=== PATIENT | female | born 1950 | race Two or more races ===

== ENCOUNTER 2018-02-09 08:49 | Outpatient (CLI) | payer OTHER ==
[~2018-02-09 08:49] MED LIST: COZAAR50 MG; HYZAAR 100-251 UDTAB PO; MECLIZINE HCL25 MG PO; TOPROL XL100 M1; XARELTO10 MG; [UNRECOGNIZED DRUG - OTHER]
== END 2018-02-09 08:53 | disposition home or self-care (01) ==
LOC: SONOGRAMA 08:49
DX: R10.84 Generalized abdominal pain (principal)

== ENCOUNTER 2018-04-27 07:53 | Outpatient (CLI) | payer OTHER | END 2018-04-27 08:13 | disposition home or self-care (01) | LOC: MAMO-SONO 07:53 | DX: Z12.31 Encounter for screening mammogram for malignant neoplasm of breast (principal); Z87.898 Personal history of other specified conditions; N62 Hypertrophy of breast ==

== ENCOUNTER → 2018-05-21 | Outpatient (CLI) | payer OTHER | END | disposition home or self-care (01) | LOC: NUCLEAR 09:10 | DX: M81.0 Age-related osteoporosis without current pathological fracture (principal) ==

== ENCOUNTER → 2018-07-11 | Emergency (ER) | payer OTHER ==
[~2018-07-11] VITALS: Ht 149.9 cm; Wt 89.4 kg
[~2018-07-11] MED LIST changes: +NEURONTIN300 MG PO
== END | disposition home or self-care (01) ==
LOC: ER 10:31
DX: R20.0 Anesthesia of skin (principal); R51 Headache

== ENCOUNTER → 2018-08-18 | Outpatient (CLI) | payer OTHER | END | disposition home or self-care (01) | LOC: SONOGRAMA 09:51 → MAMO-SONO 10:15 | DX: D25.2 Subserosal leiomyoma of uterus (principal); R10.2 Pelvic and perineal pain ==

== ENCOUNTER 2019-05-31 19:16 | Emergency (ER) | payer OTHER ==
[~2019-05-31] VITALS: Ht 149.9 cm; Wt 83.9 kg
[2019-05-31] MEDS ORDERED: ASPIR 8181 MG (19:42)
== END 2019-05-31 20:47 | disposition home or self-care (01) ==
LOC: ER 19:16
DX: T78.49XA Other allergy, initial encounter (principal); X58.XXXA Exposure to other specified factors, initial encounter

== ENCOUNTER 2019-07-17 07:42 | Outpatient (CLI) | payer OTHER ==
[~2019-07-17 07:42] MED LIST changes: +ASPIR 8181 MG
== END 2019-07-17 07:47 | disposition home or self-care (01) ==
LOC: MAMO-SONO 07:42
DX: Z12.31 Encounter for screening mammogram for malignant neoplasm of breast (principal); Z87.898 Personal history of other specified conditions; N63.11 Unspecified lump in the right breast, upper outer quadrant; R10.84 Generalized abdominal pain

== ENCOUNTER 2019-08-10 14:20 | Emergency (ER) | payer OTHER ==
[~2019-08-10] VITALS: Ht 149.9 cm; Wt 85.3 kg
== END 2019-08-10 20:01 | disposition home or self-care (01) ==
LOC: ER 14:20
DX: I10 Essential (primary) hypertension (principal)

== ENCOUNTER 2019-11-19 10:23 | Outpatient (CLI) | payer OTHER | END 2019-11-19 10:25 | disposition home or self-care (01) | LOC: SONOGRAMA 10:23 | DX: E04.1 Nontoxic single thyroid nodule (principal) ==

== ENCOUNTER → 2020-06-05 | Emergency (ER) | payer OTHER ==
[~2020-06-05] VITALS: Ht 149.9 cm; Wt 95.3 kg
[~2020-06-05] MED LIST changes: +LASIX40 MG; +MEDROLPACK PO; +SINGULAIR10 MG PO; +TUSNEL LIQUID178 ML PO; +XOPENEX0.63 MG/3 IH; +ZITHROMAX500 MG PO
== END | disposition home or self-care (01) ==
LOC: ER 19:47
DX: B34.9 Viral infection, unspecified (principal); Z03.818 Encounter for observation for suspected exposure to other biological agents ruled out; R06.02 Shortness of breath; R53.81 Other malaise; R53.1 Weakness

== ENCOUNTER 2020-06-10 09:05 | Emergency (ER) | payer OTHER ==
[~2020-06-10] VITALS: Ht 149.9 cm; Wt 95.3 kg
[~2020-06-10 09:05] MED LIST changes: -LASIX40 MG; -MEDROLPACK PO; -SINGULAIR10 MG PO; -TUSNEL LIQUID178 ML PO; -XOPENEX0.63 MG/3 IH; -ZITHROMAX500 MG PO
[2020-06-10] MEDS ORDERED: LASIX40 MG (09:08)
[2020-06-10] MEDS ORDERED: TUSNEL LIQUID178 ML PO (12:03)
[2020-06-10] MEDS ORDERED: ZITHROMAX500 MG PO (12:03)
[2020-06-10] MEDS ORDERED: XOPENEX0.63 MG/3 IH (12:04)
[2020-06-10] MEDS ORDERED: SINGULAIR10 MG PO (12:05)
[2020-06-10] MEDS ORDERED: MEDROLPACK PO (12:05)
== END 2020-06-10 12:28 | disposition home or self-care (01) ==
LOC: ER 09:05
DX: J45.998 Other asthma (principal); Z03.818 Encounter for observation for suspected exposure to other biological agents ruled out

== ENCOUNTER 2020-12-15 11:13 | Outpatient (CLI) | payer OTHER ==
[~2020-12-15 11:13] MED LIST changes: +LASIX40 MG; +MEDROLPACK PO; +SINGULAIR10 MG PO; +TUSNEL LIQUID178 ML PO; +XOPENEX0.63 MG/3 IH; +ZITHROMAX500 MG PO
== END 2020-12-15 14:10 | disposition home or self-care (01) ==
LOC: RAD 11:13 → TOM 11:15 → RAD 14:10
PROVIDERS: ATTEND Internal Medicine Cardiovascular Disease
DX: J44.9 Chronic obstructive pulmonary disease, unspecified (principal); R05 Cough; R06.2 Wheezing; R50.9 Fever, unspecified

== ENCOUNTER 2021-10-04 08:24 | Outpatient (CLI) | payer OTHER | END 2021-10-04 08:29 | disposition home or self-care (01) | LOC: MAMO-SONO 08:24 | PROVIDERS: ATTEND Obstetrics & Gynecology | DX: N64.59 Other signs and symptoms in breast (principal); Z12.31 Encounter for screening mammogram for malignant neoplasm of breast ==

== ENCOUNTER 2022-01-13 10:29 | Outpatient (CLI) | payer OTHER | END 2022-01-13 10:30 | disposition home or self-care (01) | LOC: NUCLEAR 10:29 | PROVIDERS: ATTEND Internal Medicine Cardiovascular Disease | DX: M81.0 Age-related osteoporosis without current pathological fracture (principal) ==

== ENCOUNTER 2022-06-10 07:58 | Outpatient (CLI) | payer OTHER | END 2022-06-10 08:04 | disposition home or self-care (01) | LOC: SONOGRAMA 07:58 | PROVIDERS: ATTEND Internal Medicine | DX: R10.13 Epigastric pain (principal); N80.9 Endometriosis, unspecified ==

== ENCOUNTER 2022-10-10 12:20 | Emergency (ER) | payer OTHER ==
[~2022-10-10] VITALS: Ht 149.9 cm; Wt 74.4 kg
== END 2022-10-10 16:30 | disposition home or self-care (01) ==
LOC: ER 12:20
DX: I80.3 Phlebitis and thrombophlebitis of lower extremities, unspecified (principal); Z91.041 Radiographic dye allergy status

== ENCOUNTER 2022-10-11 10:32 | Outpatient (CLI) | payer OTHER | END 2022-10-11 10:35 | disposition home or self-care (01) | LOC: NUCLEAR 10:32 | PROVIDERS: ATTEND General Practice | DX: I82.403 Acute embolism and thrombosis of unspecified deep veins of lower extremity, bilateral (principal); Z91.041 Radiographic dye allergy status ==

== ENCOUNTER 2022-12-27 11:07 | Outpatient (CLI) | payer OTHER | END 2022-12-27 11:15 | disposition home or self-care (01) | LOC: MAMO-SONO 11:07 | PROVIDERS: ATTEND Internal Medicine Cardiovascular Disease | DX: N63.11 Unspecified lump in the right breast, upper outer quadrant (principal) ==

== ENCOUNTER 2023-02-22 07:26 | Outpatient (CLI) | payer OTHER | END 2023-02-22 07:29 | disposition home or self-care (01) | LOC: NUCLEAR 07:26 | PROVIDERS: ATTEND Internal Medicine | DX: R10.13 Epigastric pain (principal); R11.0 Nausea; K31.84 Gastroparesis | CPT/HCPCS: 78264; A9541 ==

== ENCOUNTER → 2023-03-13 | Outpatient (CLI) | payer OTHER | END | disposition home or self-care (01) | LOC: NUCLEAR 09:00 | PROVIDERS: ATTEND Thoracic Surgery (Cardiothoracic Vascular Surgery) | DX: I80.3 Phlebitis and thrombophlebitis of lower extremities, unspecified (principal) ==

== ENCOUNTER 2023-11-02 08:45 | Outpatient (CLI) | payer OTHER | END 2023-11-02 08:48 | disposition home or self-care (01) | LOC: SONOGRAMA 08:45 | PROVIDERS: ATTEND Internal Medicine Cardiovascular Disease | DX: M12.9 Arthropathy, unspecified (principal); M46.97 Unspecified inflammatory spondylopathy, lumbosacral region; N80.9 Endometriosis, unspecified ==

== ENCOUNTER 2024-01-03 09:09 | Outpatient (CLI) | payer OTHER | END 2024-01-03 09:16 | disposition home or self-care (01) | LOC: MAMO-SONO 09:09 | PROVIDERS: ATTEND Internal Medicine Cardiovascular Disease | DX: N60.12 Diffuse cystic mastopathy of left breast (principal); N60.11 Diffuse cystic mastopathy of right breast; Z12.31 Encounter for screening mammogram for malignant neoplasm of breast ==

== ENCOUNTER 2024-08-07 08:39 | Outpatient (CLI) | payer OTHER | END 2024-08-07 08:43 | disposition home or self-care (01) | LOC: SONOGRAMA 08:39 | PROVIDERS: ATTEND Internal Medicine Cardiovascular Disease | DX: N80.9 Endometriosis, unspecified (principal) ==

== ENCOUNTER 2024-08-29 13:02 | Outpatient (CLI) | payer OTHER | END 2024-08-29 13:03 | disposition home or self-care (01) | LOC: NUCLEAR 13:02 | PROVIDERS: ATTEND Internal Medicine Cardiovascular Disease | DX: M81.0 Age-related osteoporosis without current pathological fracture (principal) ==

== ENCOUNTER 2024-09-19 19:19 | Emergency (ER) | payer OTHER ==
[~2024-09-19] VITALS: Ht 149.9 cm; Wt 86.2 kg
[2024-09-19] MEDS ORDERED: METHYLPREDNISOLONE SOD SUCC 125 MG VIAL IV ONE (21:30)
[2024-09-19 21:52] LABS: HEMATOCRIT 37.2 % (36.0-45.00); HEMOGLOBIN 12.6 g/dL (12.0-15.00); MEAN CELL VOLUME 86.2 fL (80.00-100.00); MEAN CORPUSCULAR HEMOGLOBIN 29.2 pg (27.00-32.0); MEAN CORPUSCULAR HGB CONC 33.8 g/dl (32.0-36.0); PLATELET COUNT 169 K/uL (150-450); RED BLOOD COUNT 4.32 M/uL (4.00-6.00); RED CELL DISTRIBUTION WIDTH 13.3 % (11.5-14.5)
== END 2024-09-19 23:45 | disposition home or self-care (01) ==
LOC: ER 19:21
PROVIDERS: General Practice
DX: G51.0 Bell's palsy (principal); R20.0 Anesthesia of skin; Z91.041 Radiographic dye allergy status
CPT/HCPCS: 36415; 96365; 99282; J3490

== ENCOUNTER 2025-06-07 12:20 | Emergency (ER) | payer OTHER ==
[~2025-06-07] VITALS: Ht 149.9 cm; Wt 89.8 kg
[2025-06-07] MEDS ORDERED: MECLIZINE HCL 25 MG TABLET PO ONE ×2 (13:37→13:45)
== END 2025-06-07 13:58 | disposition home or self-care (01) ==
LOC: ER 12:20
DX: R42 Dizziness and giddiness (principal); R00.1 Bradycardia, unspecified; Z91.041 Radiographic dye allergy status; I10 Essential (primary) hypertension

== ENCOUNTER 2025-06-25 09:22 | Outpatient (CLI) | payer OTHER | END 2025-06-25 09:24 | disposition home or self-care (01) | LOC: MAMO-SONO 09:22 | PROVIDERS: ATTEND Internal Medicine Cardiovascular Disease | DX: N60.11 Diffuse cystic mastopathy of right breast (principal); N60.12 Diffuse cystic mastopathy of left breast; Z12.31 Encounter for screening mammogram for malignant neoplasm of breast; N89.8 Other specified noninflammatory disorders of vagina ==